=== PATIENT | female | born 1990 | race Caucasian/White ===

== ENCOUNTER 2017-03-10 18:06 | Emergency (ER) | payer OTHER ==
[2017-03-10 19:36] LABS: Urine Appearance Clear; Urine Bacteria None Seen; Urine Bilirubin Negative (NEGATIVE); Urine Blood 10 /ul (NEGATIVE); Urine Color Yellow; Urine Ketone Negative (NEGATIVE); Urine Nitrite Negative (NEGATIVE); Urine Protein Negative (NEGATIVE); Urine RBC 0-5 /hpf (0-5); Urine Urobilinogen Normal (NORMAL); Urine WBC 0-5 /hpf (0-5)
[2017-03-10] MEDS ORDERED: AZITHROMYCIN 250 MG TABLET PO ONE (20:51)
[2017-03-10] MEDS ORDERED: AZITHROMYCIN 250 MG TABLET ONE (20:57)
--- NOTE | 2017-03-10 21:01 | ERNOTE ---
ER Female HPI Date of Service: 03/10/17 Stated Complaint: STD TESTING Presenting Symptoms: other - no pain, no symptoms Time Seen by Provider: 03/10/17 20:51 Source: patient Exam Limitations: no limitations Immunizations: IMMUNIZATION HX Immunizations Up to Date Yes Allergies/Adverse Reactions: Allergies loratadine [From Claritin] Adverse Reaction (Verified 03/10/17 18:38) Home Medications: HOME MEDICATIONS NK [No Home Medication] 03/10/17 [Last Taken Unknown] Pain Score #1 Pain Score: 0 - History of Present Illness Narrative: Patient is a 26 year old female who presents to ED with complaints of possible STD exposure and late period. Patient states she had her tubes tied 2 years ago and gets her period "every month on the just like clock work". Patient states it is now the and she still has not gotten her period. States she has taken 2 tests which have both been negative. Patient also states she had 2 sexual encounters, both with unprotected sex, once on the 03/05 and second one on 03/02 with same partner. States he informed her that he had "pus coming out of his penis". States he has not been checked medically and has not received STD diagnosis yet is symptomatic. Patient states she currently has no symptoms, denies abdominal or flank pain, fever , chills, NVD, vaginal bleeding or discharge. States she would not be getting checked if he had not told her about his symptoms. Patient does admit to being under added stress Date (Duration): 03/10/17 Timing: Present: other - no s/s Quality: Present: other - no s/s Onset Location: Present: other - no s/s Activities at Onset: Present: none Prior Abdominal Problems: Present: none Sexual [place] History: Present: same sex partner, exposure to STD - possible Modifying Factors - (Improves): Present: other - no s/s Modifying Factors - (Worsens): Present: other - no s/s Associated Symptoms: Present: denies symptoms Review of Systems - Review of Systems Constitutional: Present: no symptoms reported EYE: Present: no symptoms reported ENT: Present: no symptoms reported Respiratory: Present: no symptoms reported Cardiology: Present: no symptoms reported Gastrointestinal/Abdominal: Present: no symptoms reported Genitourinary: Present: no symptoms reported Musculoskeletal: Present: no symptoms reported Skin: Present: no symptoms reported Neurological: Present: no symptoms reported Endocrine: Present: no symptoms reported - Patient's Past Medical History Patient History - Medical: No pertinent hx Patient History - Cardiac/Respiratory: No pertinent hx Patient History - Cancer: No Hx of Cancer Patient History - Surgical Procedures: Tubal Ligation - Social History Smoking Status: Never smoker Have you smoked in the past 12 months: No Patient requests Smoking Cessation Consult: No - Immunizations Immunizations Up to Date: Yes Physical Exam - Physical Exam General Appearance: Present: wd/wn, alert, no apparent distress Eye Exam: Normal inspection: bilateral, PERRL: bilateral Ears, Nose, Throat: Present: normal pharynx. Absent: dry mucous membranes Neck: Present: normal inspection, nontender, supple, full range of motion. Absent: lymphadenopathy (R), lymphadenopathy (L) Respiratory: Present: no respiratory distress, normal breath sounds, no accessory muscle use, chest nontender, lungs clear Cardiovascular/Chest: Present: regular rate, rhythm, no murmur, normal peripheral pulses Gastrointestinal/Abdominal: Present: normal bowel sounds, nontender, nondistended, soft, no organomegaly Rectal Exam: Present: deferred Back Exam: Present: normal inspection, normal range of motion, no CVA tenderness , no vertebral tenderness Extremity Exam: Present: normal inspection, non-tender, normal range of motion, no edema Neurological Exam: Present: alert, oriented, normal mood/affect, no motor/ sensory deficits Skin Exam: Present: normal color, warm/dry Lymphatic Exam: Present: no adenopathy ED Progress - Results and Orders Patient's Lab Results:: I have reviewed the patient's lab results. - Vital Signs Patient's Vital Signs:: I have reviewed the patient's vital signs. Vital Signs: Vital Signs 03/10/17 18:34 Pulse Rate 74 Respiratory 14 Rate Blood Pressure 136/81 O2 Sat by Pulse 100 Oximetry - Progress/Reassessment Chief Complaint: Genitourinary Problem Progress:: Unchanged Departure Clinical Impression: STD exposure, Late period - Departure Disposition: Home self-care Condition: Good Instructions: Sexually Transmitted Disease, [id number], Chlamydia, Female, [id number] Additional Instructions: Follow up with Stella Alvarez as needed. Consider using protection with every sexual encounter. Return to ED if begin to experience vaginal pain, discharge, abdominal pain, fever. Referrals: Stella Alvarez FNP [Primary Care Provider] -
[2017-03-10 21:35] VITALS: BP 118/75
== END 2017-03-10 21:24 | disposition home or self-care (01) ==
LOC: ER 18:06
DX: N91.2 Amenorrhea, unspecified (principal); Z20.2 Contact with and (suspected) exposure to infections with a predominantly sexual mode of transmission